=== PATIENT | male | born 1950 | race Caucasian/White ===

== ENCOUNTER 2025-01-01 11:49 | Outpatient (CLI) | payer MEDICARE, SELFPAY ==
--- NOTE | 2025-01-01 11:56 | CTR_ITS ---
PROCEDURE INFORMATION: Exam: CT Neck With Contrast Exam date and time: 01/01/2025 12:55 PM Age: 74 years old Clinical indication: Mass, lump, or swelling in neck; Lump behind right ear, marked with bb x 6 months; Additional info: Salivary gland swelling/localized edema, stat TECHNIQUE: Imaging protocol: Computed tomography of the neck with contrast. Radiation optimization: All CT scans at this facility use at least one of these dose optimization techniques: automated exposure control; mA and/or kV adjustment per patient size (includes targeted exams where dose is matched to clinical indication); or iterative reconstruction. Contrast material: OMNIPAQUE 350; Contrast volume: 100 ml; Contrast route: INTRAVENOUS (IV); COMPARISON: No relevant prior studies available. RADIATION DOSE METRICS: Total DLP (mGy-cm): 224.47 FINDINGS: Brain: Visible portions of the brain are unremarkable. Paranasal sinuses: Moderate inflammatory changes are seen in the anterior ethmoid air cells. Some retained secretions are noted in the right sphenoid sinus. Mastoid air cells: No mastoiditis or otitis media is present. Salivary glands: Normal. Glands are normal in size. Pharynx: Unremarkable. No significant tonsillar enlargement. Larynx: Unremarkable. Epiglottis is normal. Thyroid: Normal. No enlarged or calcified nodules. Trachea: Visualized trachea is unremarkable. Lungs: Lung apices are clear Lymph nodes: Unremarkable. No lymphadenopathy. Bones/joints: Cartilaginous calcification in both ears is noted. There is no fracture, lytic, or blastic lesion. Wire fixation of the mandible is noted. There is advanced multilevel cervical spondylosis from C3-C4 through C7-T1, greatest at the C5-C6 and C6-C7 levels where disc osteophyte complexes are suggested along with facet arthropathy with probable left C6 and right C7 foraminal root impingement due to bony foraminal stenosis. Advanced hypertrophic arthropathy of the right sternal manubrial articulation is also. Soft tissues: There is a homogeneously enhancing, 20.1 x 23.3 x 32.6 mm soft tissue mass, located at the posterior margin of the right parotid gland and superficial to the anterolateral margin of the right sternocleidomastoid muscle. It forms acute angles with these structures suggesting that it is an abnormal lymph node rather than an intrinsic parotid or muscular mass. Just anterior and medial to this mass is a 2nd, similar enhancing probable intraparotid lymph node that is still within normal size CT criteria at 6.9 mm, but remarkable in its similar, homogeneous enhancement. No additional potential lymphadenopathy is observed. No mucosal lesions are present. CT/CT neck w con* [id number] IMPRESSION: 1. 2 x 2 x 3 cm enhancing soft tissue mass, located along the posterior margin of the right parotid gland with a similar, abnormally enhancing intraparotid lymph node. These are both most likely abnormal lymph nodes. Consider ultrasound-guided biopsy for further assessment. 2. Scattered paranasal sinus inflammation. 3. Multilevel cervical spondylosis potential left C6 and right C7 foraminal root impingement.
== END 2025-01-01 11:50 | disposition home or self-care (01) ==
LOC: RAD 11:52
PROVIDERS: PCP Family Medicine; Visit Provider Family Medicine
DX: R22.1 Localized swelling, mass and lump, neck (principal); M47.812 Spondylosis without myelopathy or radiculopathy, cervical region
CPT/HCPCS: 70491

== ENCOUNTER 2025-03-14 08:09 | Outpatient (CLI) | payer MEDICARE, SELFPAY ==
[2025-03-14 08:29] VITALS: PULSE 87; RESP 18; O2SAT 98
--- NOTE | 2025-03-14 08:50 | XR_ITS ---
WS: [id number] XR chest 2V* [id number] REASON FOR EXAM: PREPROCEDURAL EXAMINATION FINDINGS: Moderate tortuosity and ectasia of the thoracic aorta with calcification of the aortic arch. Normal heart size. Calcified granulomatous disease bilaterally. No acute pulmonary parenchymal or pleural abnormality is identified. There is mild flattening of the hemidiaphragms and mild expansion of the anterior clear space. These findings may be indicative of some degree of obstructive airway disease. XR/XR chest 2V* [id number] IMPRESSION: No acute abnormality. Possible mild obstructive airway disease.
== END 2025-03-14 08:10 | disposition home or self-care (01) ==
PROVIDERS: PCP Family Medicine; Visit Provider Specialist
DX: Z01.818 Encounter for other preprocedural examination (principal); I77.810 Thoracic aortic ectasia; I70.0 Atherosclerosis of aorta; J84.10 Pulmonary fibrosis, unspecified; R91.8 Other nonspecific abnormal finding of lung field
CPT/HCPCS: 71046; 94060; J7613

== ENCOUNTER 2025-03-20 12:07 | Observation (INO) | payer MEDICARE, SELFPAY ==
[2025-03-20] VITALS (17 sets, daily range): BP systolic 95–160; BP diastolic 39–80; PULSE 64–81; RESP 8–18; TEMP 36.1–36.6; O2SAT 92–100; BMI 25.0
--- NOTE | 2025-03-20 06:50 | W.PM.OPSUD ---
Surgery/Procedure H&P Update DATE OF PROCEDURE: March 20, 2025 DATE H&P PERFORMED: 02/19/25 CHANGES TO PREVIOUS DOCUMENTATION: None PRIMARY INDICATION FOR PROCEDURE: Right parotid mass PLANNED PROCEDURE: Operation Date: 03/20/25 07:00 Proposed Procedures p Parotidectomy Parotidectomy with Facial Nerve Dissection(Right) - Major Bowers MD s Fat Graft Abdominal Fat Graft(Left) - Major Bowers MD
--- NOTE | 2025-03-20 06:55 | ANES.PREANE2 ---
Pre-Anesthetic Assessment Height/Weight: Height 1.91 m Weight 90.718 kg O2 Del Method Room Air 03/20/25 06:10 Operation Date: 03/20/25 07:00 Proposed Procedures p Parotidectomy Parotidectomy with Facial Nerve Dissection(Right) - Major Bowers MD s Fat Graft Abdominal Fat Graft(Left) - Major Bowers MD Familial anesthetic complications: Emotional upon waking Was Beta Mary taken within 24 hours: N/A Was Clonidine taken within 24 hours: N/A Last intake: Intake Last Liquid Date 03/19/25 Last Liquid Time 23:30 Last Solid Date 03/19/25 Last Solid Time 19:00 Social Tobacco and No alcohol Exam alert, oriented x 3, clear to auscultation bilaterally and regular rate & rhythm Airway Mallampati: Class II Dentition: full (crowns) CV/HEM Hypertension scr 1.36 on labs from 02/19 Anesthetic Plan ASA status: 3 Anesthesia: General Risk of > 500 ml blood loss (7ml/kg in children): No Medications/Allergies Home Medications ?Medication ?Instructions ?Recorded ?Confirmed ?Last Taken ?Type lisinopril 20 2 tab PO DAILY 03/19/25 03/19/25 03/19/25 History mg-hydrochlorothiazide 12.5 mg tablet tamsulosin 0.4 mg capsule 0.4 mg PO DAILY 03/19/25 03/19/25 03/19/25 History Allergies Allergy/AdvReac Type Severity Reaction Status Date / Time No Known Allergies Allergy Verified 03/19/25 13:30 Current Medications Generic Name Dose Route Start Last Admin Trade Name Freq PRN Reason Stop Dose Admin Sodium Chloride 1,000 mls @ 30 mls/hr 03/20/25 06:15 03/20/25 06:15 Sodium Chloride 0.9% IV 03/21/25 06:14 30 mls/hr .Q24H ELFEGO Administration
[2025-03-20 07:28] LABS: Anion Gap 14.8 (5-19); Blood Urea Nitrogen 28 mg/dL (8-23); Calcium 9.4 mg/dL (8.5-10.5); Carbon Dioxide 25 mmol/L (22-29); Chloride 103 mmol/L (98-107); Creatinine Clr Calc Pharmacy 67.4554; Glucose 128 mg/dL (65-115); Osmolality Calculated 293 mOsm/kg (285-295); Potassium 4.8 mmol/L (3.5-5.1); Sodium 138 mmol/L (136-145)
[2025-03-20] MEDS: ceFAZolin 2,000 mg SDV 2000 MG IVP ×2 (07:30→14:59)
[2025-03-20] MEDS: lidocaine-epi 1% PF 1:200,000 30 mL SDV INJECTION (08:20)
[2025-03-20] MEDS: ceFAZolin 1,000 mg SDV 1000 MG IRRIGATION (10:18)
[2025-03-20] MEDS: triamcinolone 40 mg/mL SDV IM (10:37)
--- NOTE | 2025-03-20 11:18 | P.OP_ITS ---
Operative Report Date of procedure: March 20, 2025 Pre-op diagnosis: Right parotid gland mass Post-op diagnosis: Same Post-op findings: - 2X3 cm right xvxj-[id number]-[id number] mass - O/W Normal right parotid gland Procedure done: Right superficial parotidectomy Implants: None Specimens removed/disposition: Right parotid mass Pathology: Right parotid mass Surgeon: Major Bowers MD Quality Head: Shannon Nickerson Anesthesia: General Estimated blood loss: 10 mL IV fluids: 1600 mL Urine output: 600 mL Complications: None Findings: - 2X3 cm right tail of parotid mass - O/W normal right parotid gland mass Brief History: 74 yo wm with a h/o an enlarging right jolr-[id number] mass who desires surgical therapy. Procedure: The patient was identified in the preoperative holding area and was taken to the operating room where he was placed on the operating table in the supine position. Anesthesia was obtained with general endotracheal anesthesia and the table was then turned 180 degrees. The patient's head was turned to the left exposing the right face to the operating surgeon. The [place] nerve monitoring system was placed on the patient and a modified Prabhakar incision was marked out on the patient. The right facial incision was then injected with local anesthesia and the patient was then prepped and draped in the usual sterile fashion. The incision was then made with a 15 blade and was carried down through the subcutaneous tissues with sharp scissors. An anterioly based subplatysmal flap was then elevated over the patient's right face and neck and the [place] retractor was placed in the wound at this point. At this point blunt dissection was accomplished with a nerve monitoring hemostat along a broad front starting in the immediate preauricular tissues over the tragal cartilage and extending down posterior to the parotid and onto the sternocleidomastoid muscle on the right. This dissection was then accomplished with nerve monitored with blunt dissection with the deepest point being at the tympanomastoid suture line. The dissection proceeded until the stylohyoid muscle was identified and was traced superiorly into the area of the tympanomastoid suture line. As the dissection proceeded the facial nerve trunk was identified both visually and electrically and then was traced anteriorly. While protecting the facial nerve. The facial nerve was then traced out over its inferior portion protecting it while dissecting the mass off of the facial nerve itself. As the dissection proceeded anteriorly from posteriorly the facial nerve was protected in all of its branches and the mass was eventually resected with blunt dissection, bipolar cautery and the harmonic scalpel with a wide cuff of normal-appearing parotid tissue. Once the mass been removed the wound was checked for hemostasis which was found to be adequate. 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 At this point the posterior aspect of the parotid tissue remnant was sutured to the anterior border of the sternocleidomastoid muscle. During the dissection the great auricular nerve was sacrificed because it was involved with tumor. A drain was placed in the wound and the wound was then closed with interrupted 4-0 Monocryl sutures in subcu and a running 4-0 fast absorbing gut on the skin. The wound was then cleaned and covered with triple antibiotic ointment. The procedure was then terminated and control of the patient was returned to anesthesia where he underwent an uneventful reversal of anesthesia and extubation and was taken to the recovery room in stable condition. There were no operative or anesthetic complications.
--- NOTE | 2025-03-20 12:10 | ANE.PACU2 ---
Inpatient post-anesthesia follow up: Airway intact: Yes Vital signs: Temperature 97.6 F Pulse Rate 81 Respiratory Rate 16 Blood Pressure 129/80 Pulse Oximetry 94 Oxygen Delivery Me thod Room Air Oxygen Flow Rate 8 Fraction of Inspir ed Oxygen Hydration adequate: Yes Nausea and vomiting: No Pain level: 1 Mental status: Baseline
--- NOTE | 2025-03-20 17:10 | P.PN_ITS ---
Subjective 2 Subjective: 74 yo wm with a h/o a right parotid mass who is night of sugery s/p right superficial parotidectomy. The patient reports that he has mild pain, but is o/w without c/o. Medications: Reviewed: Yes Vitals/I&O/Wt Last Vital Signs Temp 97.6 F 03/20/25 13:15 Pulse 81 03/20/25 13:19 Resp 16 03/20/25 13:15 BP 129/80 03/20/25 13:15 Pulse Ox 94 03/20/25 13:15 O2 Del Method Room Air 03/20/25 13:15 O2 Flow Rate 8 03/20/25 11:15 03/20/25 03/20/25 03/20/25 06:59 14:59 22:59 Intake Total 700 / 700 Output Total 615 / 615 160 / 775 Balance 85 / 85 -160 / -75 Weight last 48 hrs Weight 90.718 kg Physical Exam 2 Const: COMMON NORMALS: no acute distress, average body habitus and patient oriented x3 HENMT: COMMON NORMALS: normocephalic, atraumatic and external ears normal H EAD & SCALP: normal to inspection, normocephalic and atraumatic FACE & SINUS: normal facial exam EXTERNAL EAR: Yes external ears normal Eye: COMMON NORMALS: conjunctivae normal and no scleral icterus C ONJUNCTIVA: Yes conjunctivae normal Neck/C-Spine: COMMON NORMALS: no lymphadenopathy and supple GENERAL: Yes trachea midline and Yes other (Right facial wound intact without swelling) Resp: COMMON NORMALS: normal respiratory effort, No use of accessory muscles and clear to auscultation bilaterally AUSCULTATION: clear to auscultation bilaterally Cardio: COMMON NORMALS: regular rate, regular rhythm and No murmurs present (Cardio) RATE: regular rate RHYTHM: regular rhythm GI: COMMON NORMALS: Normal to inspection, nondistended, normoactive bowel sounds present Extremity: COMMON NORMALS: normal to inspection Neuro: COMMON NORMALS: patient oriented x3 and CN's II-XII intact bilaterally CRANIAL NERVES: Yes CN VII (facial) (Intact and symmetric bilaterally) Urinary Catheter Management: Garcia: Cath Placed During This Visit: yes Urinary Catheter Date of Insertion: 03/20/25 Urinary Catheter Time of Insertion: 07:50 Data 03/20/25 07:00 A&P Assessment and plan 1. Parotid mass: Impression: Night of Surgery s/p right superficial parotidectomy doing well Plan: - Overnight observation - IVFs - Advance to regular diet - Resume all preop medications - Pain control with IV Morphine and/or Oral Hydrocodone - Wound care - Anticipate d/c in the am - Closed suction drainage PDMP PDMP Reviewed: Not Reviewed Attestations 2 Medical Necessity Statement*: The patient requires overnight observation of his airway Coding Level of Care Code Acute Code for Chg Fwd Diagnoses Parotid mass K11.8
[2025-03-20] MEDS: HYDROcodone-acetaminophen 5-325 mg Tablet 1 TAB PO (17:20)
--- NOTE | 2025-03-20 19:21 | PC.NURSE ---
DAMICO WAS REMOVED PRIOR TO THIS RNS SHIFT. PT ALREADY VOIDED.
[2025-03-21] VITALS: BP 148/70; PULSE 80; RESP 16; TEMP 36.7; O2SAT 94
[2025-03-21] MEDS: ceFAZolin 2,000 mg SDV 2000 MG IVP (00:02)
[2025-03-21] MEDS: HYDROcodone-acetaminophen 5-325 mg Tablet 1 TAB PO (00:02)
[2025-03-21 04:00] VITALS: BP 152/64; PULSE 77; RESP 16; TEMP 36.7; O2SAT 97
--- NOTE | 2025-03-21 05:00 | P.PN_ITS ---
Subjective 2 Subjective: 74 yo wm who is POD #1 s/p right superfi cial parotidectomy who is doing well by his report. He has minimal pain, and is taking po well. There are no other c/o. Medications: Reviewed: Yes Vitals/I&O/Wt Last Vital Signs Temp 98.0 F 03/21/25 04:00 Pulse 77 03/21/25 04:00 Resp 16 03/21/25 04:00 BP 152/64 03/21/25 04:00 Pulse Ox 97 03/21/25 04:00 O2 Del Method Room Air 03/20/25 20:00 O2 Flow Rate 8 03/20/25 11:15 03/20/25 03/20/25 03/21/25 14:59 22:59 06:59 Intake Total 700 / 700 1719.25 / 2419.25 989.583 / 3408.833 Output Total 615 / 615 160 / 775 415 / 1190 Balance 85 / 85 1559.25 / 1644.25 574.583 / 2218.833 Weight last 48 hrs Weight 90.718 kg Physical Exam 2 Const: COMMON NORMALS: no acute distress, patient oriented x3, healthy appearing and alert GENERAL APPEARANCE: cooperative, comfortable and well kempt ORIENTATION/CONSCIOUSNESS: Yes awake HENMT: COMMON NORMALS: normocephalic, atraumatic and Normal external nose present HEAD & SCALP: normocephalic and atraumatic FACE & SINUS: face symmetric and other (Right face/neck wound intact without swelling or erythema) NOSE: Normal external nose present Eye: COMMON NORMALS: no scleral icterus GENERAL EYE: appearance normal, both eyes and all related structures Neck/C-Spine: COMMON NORMALS: no lymphadenopathy and supple Resp: COMMON NORMALS: normal respiratory effort, No retractions and No use of accessory muscles Neuro: COMMON NORMALS: patient oriented x3 SENSORIUM/ORIENTATION: Yes alert Psych: APPEARANCE: Yes well kempt Urinary Catheter Management: Garcia: Cath Placed During This Visit: yes, but has since been removed by the nurse Reason for Continuing Indwelling Catheter: Decision to DC Catheter Urinary Catheter Date of Insertion: 03/20/25 Urinary Catheter Time of Insertion: 07:50 Date Urinary Catheter Removed: 03/20/25 Time Urinary Catheter Discontinued: 19:00 Data 03/20/25 07:00 A&P Assessment and plan 1. Parotid mass: Impression: POD #1 s/p right superficial parotidectomy doing well. 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 Bowers's office on 03/23/2025 - Notify Dr. Bowers for any problems PDMP PDMP Reviewed: Not Reviewed Attestations 2 Medical Necessity Statement*: The patient required overnight observation of his airway Coding Level of Care Code Acute Code for Chg Fwd Diagnoses Parotid mass K11.8
[2025-03-21 06:38] VITALS: BP 152/64; PULSE 77; RESP 16; TEMP 36.6; O2SAT 97
[2025-03-21 07:05] VITALS: BP 173/79; PULSE 79; RESP 17; TEMP 36.7; O2SAT 95
--- NOTE | 2025-03-21 08:22 | PC.NURSE ---
Pt here to drive pt home. To private vehicle with all belongings.
[2025-03-21 11:52] LABS: Lymphoma Profile (BBPL) See Report
--- NOTE | 2025-04-13 15:48 | PM.MISC ---
Miscellaneous Note Purpose of Documentation: Discharge Documentation Note: The patient was discharged to home on the morning of 03/21/2025 in stable condition. Please see the patient's progress note on this date for further details of his discharge.
== END 2025-03-21 08:22 | disposition home or self-care (01) ==
LOC: MEDSURG 12:10
PROVIDERS: Anesthesiology; Admitting Provider Specialist; PCP Family Medicine; Visit Provider Specialist
PROC: (CPT 42410; principal; 2025-03-20 07:00)
DX: D11.0 Benign neoplasm of parotid gland (principal); I10 Essential (primary) hypertension
CPT/HCPCS: 42415; 51702; 80048; 88184; 88185; 88307; 88331; G0378; J0131; J0169; J0330; J0690; J1100; J1171; J1200; J2371; J2405; J2704; J3010; J3301; J3490; J7030; J7120; J9999